=== PATIENT | male | born 1990 | race Caucasian/White ===

== ENCOUNTER 2017-10-27 15:36 | Emergency (ER) | payer MEDICAID ==
[~2017-10-27] VITALS: Ht 165.1 cm; Wt 70.9 kg
[~2017-10-27 15:36] MED LIST: RISP2TAB3 PO; RISP2TAB97 PO
[2017-10-27] MEDS ORDERED: mupirocin 2% ointment 22GM TP STA (17:17)
[2017-10-27] MEDS ORDERED: SULF1TAB49 PO (17:35)
[2017-10-27 18:08] VITALS: BP 128/92
== END 2017-10-27 17:47 | disposition home or self-care (01) ==
LOC: ER 15:36
DX: L03.811 Cellulitis of head [any part, except face] (principal); L03.113 Cellulitis of right upper limb; F19.10 Other psychoactive substance abuse, uncomplicated; F12.90 Cannabis use, unspecified, uncomplicated; Z86.14 Personal history of Methicillin resistant Staphylococcus aureus infection; Z88.5 Allergy status to narcotic agent; Z88.0 Allergy status to penicillin
CPT/HCPCS: 99283; A6449

== ENCOUNTER 2018-02-11 00:53 | Emergency (ER) | payer MEDICAID ==
[~2018-02-11] VITALS: Ht 175.3 cm; Wt 73.1 kg
[2018-02-11 01:40] VITALS: BP 154/85
[2018-02-11] MEDS ORDERED: predniSONE 20 mg tablet PO ONE (02:10)
[2018-02-11] MEDS ORDERED: diphenhydrAMINE 25mg capsule PO ONE (02:10)
[2018-02-11] MEDS ORDERED: famotidine 20mg tablet PO ONE (02:10)
[2018-02-11] MEDS ORDERED: PRED20TA PO (02:13)
[2018-02-11] MEDS ORDERED: DIPH25CA83 PO (02:13)
[2018-02-11] MEDS ORDERED: FAMO-128 PO (02:13)
[2018-02-11] MEDS ORDERED: PERM60CR19 TP (02:15)
== END 2018-02-11 02:49 | disposition home or self-care (01) ==
LOC: ER 00:54
DX: L50.9 Urticaria, unspecified (principal); F15.10 Other stimulant abuse, uncomplicated; F12.10 Cannabis abuse, uncomplicated; F11.10 Opioid abuse, uncomplicated; Z86.14 Personal history of Methicillin resistant Staphylococcus aureus infection; Z90.89 Acquired absence of other organs; Z88.0 Allergy status to penicillin; Z88.1 Allergy status to other antibiotic agents; Z88.5 Allergy status to narcotic agent
CPT/HCPCS: 99284; J7512; Q0163

== ENCOUNTER 2018-02-15 08:11 | Emergency (ER) | payer MEDICAID, OTHER ==
[~2018-02-15] VITALS: Ht 180.3 cm; Wt 73.0 kg
[~2018-02-15 08:11] MED LIST changes: +DIPH25CA83 PO; +FAMO-128 PO; +PERM60CR19 TP; +PRED20TA PO
[2018-02-15] MEDS ORDERED: normal saline 1000ML IV soln IVB ONE (08:30)
[2018-02-15] MEDS ORDERED: diphenhydrAMINE 50 mg/ml inj IV ONE (08:30)
[2018-02-15] MEDS ORDERED: methylPREDNISolone sod succ 125mg/2ml vial IV ONE (08:30)
[2018-02-15 10:07] VITALS: BP 150/69
== END 2018-02-15 10:16 | disposition home or self-care (01) ==
LOC: ER 08:11
DX: F11.10 Opioid abuse, uncomplicated (principal); T50.995A Adverse effect of other drugs, medicaments and biological substances, initial encounter; F12.90 Cannabis use, unspecified, uncomplicated; F19.10 Other psychoactive substance abuse, uncomplicated; Z88.0 Allergy status to penicillin; Z88.5 Allergy status to narcotic agent
CPT/HCPCS: 96374; 96375; 99284; J1200; J2930; J7030; 96361

== ENCOUNTER 2018-02-20 08:28 | Emergency (ER) | payer MEDICAID, OTHER ==
[~2018-02-20] VITALS: Ht 172.7 cm; Wt 80.0 kg
[2018-02-20 09:01] LABS: BASOPHILS % (AUTO) 0.2 % (0-1); EOSINOPHILS # (AUTO) 0.3 X10'3 (0-0.9); EOSINOPHILS % (AUTO) 3.1 % (0-6); HEMATOCRIT 41.8 % (42.0-52.0); HEMOGLOBIN 14.2 g/dl (14.0-17.9); LYMPHOCYTES # (AUTO) 2.4 X10'3 (1.1-4.8); LYMPHOCYTES % (AUTO) 29.7 % (21-51); MEAN CORPUSCULAR HEMOGLOBIN 28.8 PG (27.0-31.0); MEAN CORPUSCULAR HGB CONC 33.9 % (33.0-36.5); MEAN PLATELET VOLUME 8.6 FL (7.4-10.4); MONOCYTES # (AUTO) 0.6 X10'3 (0-0.9); NEUTROPHILS # (AUTO) 4.7 X10'3 (1.8-7.7); PLATELET COUNT 182 X10'3 (140-440); RED BLOOD COUNT 4.91 X10'6 (4.70-6.10); RED CELL DISTRIBUTION WIDTH 14.5 % (11.5-14.5); WHITE BLOOD COUNT 8.1 X10'3 (4.5-11.0)
[2018-02-20 09:14] LABS: ALANINE AMINOTRANSFERASE 45 U/L (12-78); ALBUMIN 3.6 G/DL (3.4-5.0); ALBUMIN/GLOBULIN RATIO 0.9 (1.1-1.5); ALKALINE PHOSPHATASE 103 IU/L (46-116); ANION GAP 5 (8-16); ASPARTATE AMINO TRANSFERASE 29 U/L (10-37); BILIRUBIN,TOTAL 0.3 MG/DL (0.1-1.0); BLOOD UREA NITROGEN 13 MG/DL (7-18); BUN/CREATININE RATIO 20.3 (5.4-32.0); CHLORIDE 103 MMOL/L (99-107); CREATININE 0.64 MG/DL (0.60-1.10); GLUCOSE 128 MG/DL (70-104); POTASSIUM 4.1 MMOL/L (3.5-5.1); SODIUM 141 MMOL/L (135-145); TOTAL CARBON DIOXIDE 32.7 MMOL/L (24-32); TOTAL PROTEIN 7.5 G/DL (6.4-8.2); eGFR > 90 ML/MIN
[2018-02-20 09:25] LABS: ACETAMINOPHEN < 2.0 UG/ML (10-30)
[2018-02-20 10:24] LABS: CLARITY,URINE SLIGHTLY CLOUDY (Clear); COLOR,URINE YELLOW (Yellow); GLUCOSE, URINE NEGATIVE (Neg); KETONES,URINE NEGATIVE (Neg); LEUKOCYTE ESTERASE ,URINE NEGATIVE (Neg); NITRITES, URINE NEGATIVE (Neg); OCCULT BLOOD,URINE NEGATIVE (Neg); PROTEIN,URINE NEGATIVE (Neg); UROBILINOGEN,URINE 0.2 E.U/dL (0.2-1.0)
[2018-02-20 10:27] LABS: UA COLLECTION TYPE CLN CATCH MIDSTREAM
[2018-02-20 10:34] LABS: URINE AMPHETAMINE SCREEN POSITIVE (Neg); URINE BARBITUATE SCREEN NEGATIVE (Neg); URINE BENZODIAZEPINES SCREEN NEGATIVE (Neg); URINE CANNABINOID SCREEN POSITIVE (Neg); URINE COCAINE SCREEN NEGATIVE (Neg); URINE METHADONE SCREEN NEGATIVE (Neg); URINE OPIATE SCREEN POSITIVE (Neg); URINE PHENCYCLIDINE SCREEN NEGATIVE (Neg)
[2018-02-20 10:38] LABS: CAL OXALATE CRYSTALS 4+ /HPF (NEGATIVE); MUCUS STRANDS MODERATE /LPF (Neg); SQUAMOUS EPITHELIAL CELL,UR NONE SEEN /LPF (FEW)
[2018-02-20 10:39] LABS: BACTERIA,URINE 1+ /HPF (Neg); RBC,URINE 0-2 /HPF (0-2); WBC CLUMPS,URINE FEW /HPF (NEGATIVE)
[2018-02-21] MEDS: LORazepam 1 MG tablet PO PRN ×2 (11:07→17:16)
[2018-02-21] MEDS ORDERED: acetaminophen 325mg tablet PO ONE (12:35)
[2018-02-21] MEDS: cloNIDine 0.1 mg tablet PO PRN (12:40)
[2018-02-21] MEDS ORDERED: nicotine 7mg patch - 24hr TD ONE (16:35)
[2018-02-21] MEDS: sulfamethoxazole/trimethoprim DS (800/160mg) tablet PO SCH (20:55)
[2018-02-21] MEDS: diphenhydrAMINE 25mg capsule PO PRN (20:55)
[2018-02-22] MEDS: LORazepam 1 MG tablet PO PRN ×2 (07:54→15:57)
[2018-02-22] MEDS: sulfamethoxazole/trimethoprim DS (800/160mg) tablet PO SCH ×2 (07:54→20:16)
[2018-02-22] MEDS: nicotine 7mg patch - 24hr TD SCH (10:40)
[2018-02-22] MEDS ORDERED: loperamide 2mg capsule PO ONE (13:25)
[2018-02-22] MEDS ORDERED: loperamide 2mg capsule PO PRN (13:25)
[2018-02-22] MEDS: cloNIDine 0.1 mg tablet PO PRN ×2 (13:35→20:17)
[2018-02-22] MEDS: lactobacillus rhamnosus 10,000 MMU CELLS/CAPSULE PO SCH (20:16)
[2018-02-22] MEDS: diphenhydrAMINE 25mg capsule PO PRN (20:17)
[2018-02-23] MEDS: sulfamethoxazole/trimethoprim DS (800/160mg) tablet PO SCH ×2 (08:40→20:17)
[2018-02-23] MEDS: diphenhydrAMINE 25mg capsule PO PRN ×2 (08:40→20:17)
[2018-02-23] MEDS: LORazepam 1 MG tablet PO PRN ×2 (08:40→20:17)
[2018-02-23] MEDS: lactobacillus rhamnosus 10,000 MMU CELLS/CAPSULE PO SCH ×2 (08:40→20:17)
[2018-02-23] MEDS: nicotine 7mg patch - 24hr TD SCH (08:41)
[2018-02-24] MEDS: lactobacillus rhamnosus 10,000 MMU CELLS/CAPSULE PO SCH (07:59)
[2018-02-24] MEDS: sulfamethoxazole/trimethoprim DS (800/160mg) tablet PO SCH (07:59)
[2018-02-24] MEDS: nicotine 7mg patch - 24hr TD SCH (08:00)
[2018-02-24 10:40] VITALS: BP 124/52
== END 2018-02-24 10:46 | disposition home or self-care (01) ==
LOC: ER 08:29
DX: R45.851 Suicidal ideations (principal); F32.9 Major depressive disorder, single episode, unspecified; F41.9 Anxiety disorder, unspecified; F12.90 Cannabis use, unspecified, uncomplicated; F11.10 Opioid abuse, uncomplicated; Z88.0 Allergy status to penicillin; Z88.5 Allergy status to narcotic agent; Z79.899 Other long term (current) drug therapy
CPT/HCPCS: 36415; 80053; 80305; 80320; 80329; 81001; 84443; 85025; 87088; 99284; Q0163

== ENCOUNTER 2018-03-07 07:42 | Emergency (ER) | payer MEDICAID, OTHER ==
[~2018-03-07] VITALS: Ht 175.3 cm; Wt 74.0 kg
[2018-03-07 07:58] VITALS: BP 126/78
[2018-03-07] MEDS ORDERED: SULF1TAB49 PO (08:25)
== END 2018-03-07 08:58 | disposition home or self-care (01) ==
LOC: ER 07:43
DX: L08.0 Pyoderma (principal); F12.10 Cannabis abuse, uncomplicated; F15.10 Other stimulant abuse, uncomplicated; F11.10 Opioid abuse, uncomplicated; Z86.14 Personal history of Methicillin resistant Staphylococcus aureus infection; Z88.0 Allergy status to penicillin; Z88.5 Allergy status to narcotic agent; Z88.8 Allergy status to other drugs, medicaments and biological substances; Z79.899 Other long term (current) drug therapy
CPT/HCPCS: 99283

== ENCOUNTER 2018-08-24 09:59 | Emergency (ER) | payer MEDICAID ==
[~2018-08-24] VITALS: Ht 175.3 cm; Wt 70.0 kg
[2018-08-24 10:12] VITALS: BP 118/65
[2018-08-24] MEDS ORDERED: IBUP-1984 PO (11:08)
[2018-08-24] MEDS ORDERED: ketorolac tromethamine 15mg/ml inj. IM ONE (11:10)
== END 2018-08-24 11:46 | disposition home or self-care (01) ==
LOC: ER 09:59
DX: M25.562 Pain in left knee (principal); F15.90 Other stimulant use, unspecified, uncomplicated; F11.90 Opioid use, unspecified, uncomplicated; F12.90 Cannabis use, unspecified, uncomplicated; Z88.6 Allergy status to analgesic agent; Z88.1 Allergy status to other antibiotic agents; Z88.0 Allergy status to penicillin; W17.81XA Fall down embankment (hill), initial encounter; Y93.89 Activity, other specified; Y92.828 Other wilderness area as the place of occurrence of the external cause; Y99.8 Other external cause status
CPT/HCPCS: 29505; 96372; 99284; J1885

== ENCOUNTER 2018-09-27 19:06 | Emergency (ER) | payer MEDICAID | END 2018-09-27 20:03 | disposition left against medical advice (07) | LOC: ER 19:06 | DX: L02.818 Cutaneous abscess of other sites (principal); Z53.21 Procedure and treatment not carried out due to patient leaving prior to being seen by health care provider ==

== ENCOUNTER 2019-02-10 17:55 | Emergency (ER) | payer MEDICAID ==
[~2019-02-10] VITALS: Ht 172.7 cm; Wt 75.0 kg
[2019-02-10 18:01] VITALS: BP 127/82
[2019-02-10] MEDS ORDERED: LORazepam 0.5 MG tablet PO PRN (18:25)
[2019-02-10] MEDS ORDERED: ibuprofen tablet 400 MG TABLET PO ONE (18:25)
[2019-02-10] MEDS ORDERED: NALO4SPR NAS (19:00)
== END 2019-02-10 19:19 | disposition home or self-care (01) ==
LOC: ER 17:56
DX: F41.9 Anxiety disorder, unspecified (principal); F31.9 Bipolar disorder, unspecified; F11.90 Opioid use, unspecified, uncomplicated; F12.90 Cannabis use, unspecified, uncomplicated; F15.90 Other stimulant use, unspecified, uncomplicated; Z86.14 Personal history of Methicillin resistant Staphylococcus aureus infection; Z98.890 Other specified postprocedural states; Z88.0 Allergy status to penicillin; Z88.1 Allergy status to other antibiotic agents; Z88.5 Allergy status to narcotic agent; Z79.899 Other long term (current) drug therapy; Z86.19 Personal history of other infectious and parasitic diseases
CPT/HCPCS: 99284

== ENCOUNTER 2020-04-02 02:02 | Emergency (ER) | payer MEDICAID ==
[~2020-04-02] VITALS: Ht 175.3 cm; Wt 7.7 kg
[~2020-04-02 02:02] MED LIST changes: -DIPH25CA83 PO; -FAMO-128 PO; +NALO4SPR NAS; -PERM60CR19 TP; -PRED20TA PO; -RISP2TAB3 PO; -RISP2TAB97 PO
[2020-04-02] MEDS ORDERED: LIDOcaine 1% 30ml preserv. free vial IJ ONE (02:15)
[2020-04-02] MEDS ORDERED: CEPH-572 PO (02:52)
[2020-04-02 03:33] VITALS: BP 122/70
== END 2020-04-02 03:34 | disposition home or self-care (01) ==
LOC: ER 02:03
DX: S61.201A Unspecified open wound of left index finger without damage to nail, initial encounter (principal); F41.9 Anxiety disorder, unspecified; F31.9 Bipolar disorder, unspecified; F12.90 Cannabis use, unspecified, uncomplicated; F15.90 Other stimulant use, unspecified, uncomplicated; F11.90 Opioid use, unspecified, uncomplicated; Z90.89 Acquired absence of other organs; Z86.69 Personal history of other diseases of the nervous system and sense organs; Z86.14 Personal history of Methicillin resistant Staphylococcus aureus infection; Z88.0 Allergy status to penicillin; Z88.5 Allergy status to narcotic agent; Z79.899 Other long term (current) drug therapy; W25.XXXA Contact with sharp glass, initial encounter; Y93.89 Activity, other specified; Y92.89 Other specified places as the place of occurrence of the external cause; Y99.8 Other external cause status
CPT/HCPCS: 12001; 73140; 99283

== ENCOUNTER 2020-08-22 07:59 | Inpatient (IN) | payer MEDICAID, OTHER ==
[2020-08-22] VITALS (8 sets, daily range): BP systolic 127–146; BP diastolic 79–93
[~2020-08-22] VITALS: Ht 177.8 cm; Wt 87.3 kg
[2020-08-22] MEDS: K and/or MAG REPLACEMENT MC SCH (08:00)
[2020-08-22] MEDS ORDERED: acetaminophen 325mg tablet PO STA (08:03)
[2020-08-22] MEDS ORDERED: normal saline 1000ML IV soln IV ONE (08:05)
[2020-08-22] MEDS ORDERED: CefTRIAXone 2gm/D5W 50ml BAG 50 ML IV ONE (08:05)
[2020-08-22] MEDS ORDERED: pantoprazole 40MG/NS 100ML BAG 100 ML IV ONE ×2 (08:05→13:00)
[2020-08-22] MEDS ORDERED: pantoprazole IV 80 MG in normal saline 100ml IV soln 100 ML IV ONE (08:05)
[2020-08-22 09:02] LABS: BASOPHILS # (AUTO) 0.1 X10'3 (0-0.2); BASOPHILS % (AUTO) 0.5 % (0-1); EOSINOPHILS % (AUTO) 0 % (0-6); HEMATOCRIT 41.7 % (42.0-52.0); HEMOGLOBIN 14.2 g/dl (14.0-17.9); LYMPHOCYTES # (AUTO) 1.9 X10'3 (1.1-4.8); LYMPHOCYTES % (AUTO) 9.7 % (21-51); MEAN CORPUSCULAR HEMOGLOBIN 25.7 PG (27.0-31.0); MEAN CORPUSCULAR HGB CONC 34.1 g/dL (33.0-36.5); MEAN CORPUSCULAR VOLUME 75.4 FL (78-98); MEAN PLATELET VOLUME 8.8 FL (7.4-10.4); MONOCYTES # (AUTO) 2.4 X10'3 (0-0.9); MONOCYTES % (AUTO) 12.3 % (2-12); NEUTROPHILS # (AUTO) 15.3 X10'3 (1.8-7.7); NEUTROPHILS % (AUTO) 77.5 % (42-75); PLATELET COUNT 215 X10'3 (140-440); RED BLOOD COUNT 5.53 X10'6 (4.70-6.10); RED CELL DISTRIBUTION WIDTH 12.8 % (11.5-14.5); WHITE BLOOD COUNT 19.8 X10'3 (4.5-11.0)
[2020-08-22] MEDS ORDERED: ondansetron/PF 4mg/2ml inj IV ONE (09:05)
[2020-08-22] MEDS ORDERED: phenobarbital sod 130mg/ml inj. IV ONE (09:05)
[2020-08-22 09:13] LABS: PARTIAL THROMBOPLASTIN TIME 34 SECONDS (22-32)
[2020-08-22 09:16] LABS: ALANINE AMINOTRANSFERASE 27 U/L (12-78); ALBUMIN 3.3 G/DL (3.4-5.0); ALBUMIN/GLOBULIN RATIO 0.6 (1.1-1.5); ALKALINE PHOSPHATASE 121 IU/L (46-116); ANION GAP 10 (8-16); ASPARTATE AMINO TRANSFERASE 20 U/L (10-37); BILIRUBIN,TOTAL 0.7 MG/DL (0.1-1.0); BLOOD UREA NITROGEN 24 MG/DL (7-18); BUN/CREATININE RATIO 24.5 (5.4-32.0); CALCIUM 8.9 MG/DL (8.5-10.1); CHLORIDE 88 MMOL/L (99-107); CREATININE 0.98 MG/DL (0.60-1.10); GLUCOSE 135 MG/DL (70-104); MAGNESIUM 2.4 MG/DL (1.5-2.4); POTASSIUM 3.2 MMOL/L (3.5-5.1); SODIUM 124 MMOL/L (135-145); TOTAL CARBON DIOXIDE 25.9 MMOL/L (24-32); TOTAL PROTEIN 8.7 G/DL (6.4-8.2); eGFR 89 ML/MIN
[2020-08-22 09:39] LABS: ETHANOL < 0.010 GM/DL (0.0-0.010)
[2020-08-22 09:51] LABS: TOTAL CELLS COUNTED 100
[2020-08-22 09:53] LABS: PLATELET ESTIMATE NORMAL; POLYCHROMASIA FEW
[2020-08-22 10:13] LABS: CLARITY,URINE SLIGHTLY CLOUDY (Clear); COLOR,URINE YELLOW (Yellow); GLUCOSE, URINE NEGATIVE (Neg); KETONES,URINE 15 mg/dl (Neg); LEUKOCYTE ESTERASE ,URINE NEGATIVE (Neg); NITRITES, URINE NEGATIVE (Neg); OCCULT BLOOD,URINE LARGE (Neg); PH,URINE 5.5 (4.8-8.0); PROTEIN,URINE 100 mg/dl (Neg); UROBILINOGEN,URINE 0.2 E.U/dL (0.2-1.0)
[2020-08-22 10:14] LABS: UA COLLECTION TYPE FOLEY CATH
[2020-08-22 10:18] LABS: URINE AMPHETAMINE SCREEN NEGATIVE (Neg); URINE BARBITUATE SCREEN POSITIVE (Neg); URINE BENZODIAZEPINES SCREEN NEGATIVE (Neg); URINE CANNABINOID SCREEN NEGATIVE (Neg); URINE COCAINE SCREEN NEGATIVE (Neg); URINE METHADONE SCREEN NEGATIVE (Neg); URINE OPIATE SCREEN NEGATIVE (Neg); URINE PHENCYCLIDINE SCREEN NEGATIVE (Neg)
[2020-08-22 10:22] LABS: COARSE GRANULAR CAST 0-3 /LPF (NEGATIVE); FINE GRANULAR CAST 0-3 /LPF (NEGATIVE); SQUAMOUS EPITHELIAL CELL,UR FEW /LPF (FEW)
[2020-08-22 10:25] LABS: BACTERIA,URINE FEW /HPF (Neg); WBC,URINE 0-4 /HPF (0-4)
[2020-08-22 10:26] LABS: TRANSITIONAL EPI CELLS,URINE FEW /HPF
--- NOTE | 2020-08-22 10:32 | NUR ---
Pt to CT
[2020-08-22] MEDS ORDERED: iohexol 300mg/ml 100ml inj. ONE (10:33)
[2020-08-22 11:01] LABS: OCCULT BLOOD STOOL POSITIVE (Neg)
[2020-08-22 11:07] LABS: LIPASE 294 U/L (73-393)
--- NOTE | 2020-08-22 12:00 | NUR ---
Pt altered, intermittently calling out to Juan Jose as well as a Lillian. CO at bedside as well as myself frequently reorienting pt. Pt also intermittently only responsive to painful stimuli, to hold PO at this time.
[2020-08-22] MEDS ORDERED: bisacodyl 10mg suppository rectal RC PRN (12:05)
[2020-08-22] MEDS ORDERED: diphenhydrAMINE 25mg capsule PO PRN (12:05)
[2020-08-22] MEDS ORDERED: acetaminophen 325mg tablet PO PRN (12:05)
[2020-08-22] MEDS ORDERED: ondansetron/PF 4mg/2ml inj IV PRN (12:05)
[2020-08-22] MEDS ORDERED: potassium CL 10mEq/100ml bag 100 ML IV PRN ×2 (12:05)
[2020-08-22] MEDS ORDERED: mag hydrox/Alum hydrox/simeth 30ml oral suspension PO PRN (12:05)
[2020-08-22] MEDS: pantoprazole 40MG/NS 100ML BAG 100 ML IV SCH ×3 (12:05→22:33)
[2020-08-22] MEDS ORDERED: magnesium 2GM in 50ml NS 50 ML IV PRN (12:05)
[2020-08-22] MEDS ORDERED: magnesium 4gm in 100ml NS 100 ML IV PRN (12:05)
[2020-08-22] MEDS ORDERED: acetaminophen 650mg rectal suppository RC PRN (12:05)
[2020-08-22] MEDS ORDERED: magnesium Cl slow-release 64mg tablet PO PRN (12:05)
[2020-08-22] MEDS ORDERED: magnesium hydroxide 30ml (MOM) UD suspension PO PRN (12:05)
[2020-08-22] MEDS ORDERED: metoclopramide 5 mg/ml inj IV PRN (12:05)
[2020-08-22] MEDS ORDERED: thiamine inj. 100 MG in normal saline 100ml IV soln 100 ML IV ONE (12:10)
[2020-08-22] MEDS ORDERED: haloperidol lactate 5mg/ml inj IM PRN ×2 (12:10→19:00)
[2020-08-22] MEDS ORDERED: LORazepam 1 MG tablet PO PRN (12:10)
[2020-08-22] MEDS ORDERED: LORazepam 2 mg/ml vial IV PRN (12:10)
[2020-08-22] MEDS ORDERED: haloperidol 5mg tablet PO PRN ×2 (12:10→19:00)
[2020-08-22 12:38] LABS: HEMOGLOBIN A1C 5.5 % (4.5-6.2)
[2020-08-22] MEDS ORDERED: diatr meglu/diatrizoate 30ml oral sol.-(3 dose) bottle PO SCH (13:00)
[2020-08-22 14:22] LABS: HEMATOCRIT 35.8 % (42.0-52.0); HEMOGLOBIN 12.1 g/dl (14.0-17.9); MEAN CORPUSCULAR HEMOGLOBIN 26.1 PG (27.0-31.0); MEAN CORPUSCULAR HGB CONC 33.9 g/dL (33.0-36.5); MEAN PLATELET VOLUME 8.9 FL (7.4-10.4); PLATELET COUNT 153 X10'3 (140-440); RED BLOOD COUNT 4.65 X10'6 (4.70-6.10); RED CELL DISTRIBUTION WIDTH 12.8 % (11.5-14.5); WHITE BLOOD COUNT 11.6 X10'3 (4.5-11.0)
[2020-08-22] MEDS: normal saline 1000ml 1,000 ML IV SCH ×2 (14:39→23:56)
--- NOTE | 2020-08-22 15:20 | NUR ---
Pt becoming increasingly agitated. Remains intermittently confused. Requesting something to help him "calm down". IV ativan to be given per protocol as pt remains to altered for PO Ativan.
[2020-08-22] MEDS: metroNIDAZOLE-Flagyl 500mg/NS 100 ML IV SCH ×2 (15:26→17:22)
--- NOTE | 2020-08-22 15:57 | NUR ---
Patient in room ED 3. I have received report from Alondra MEDRANO and had the opportunity to ask questions and assume patient care. Primary nurse stated she would attempt to place the NG tube. RN also stated she was unsure if the patient had been seen by a hospitalist and was unsure regarding the [facility] order. Awaiting the patient at this time.
--- NOTE | 2020-08-22 16:14 | NUR ---
Pt released from [facility] custody. Per officer, pt needs to return to the halfway for his belongings upon discharge from the hospital.
--- NOTE | 2020-08-22 17:07 | NUR ---
PAGER ID: [phone] MESSAGE: Micah Salinas - Pt. arrived to floor, pulling at NG tube and lines. Can we have order for sitter and restraints? Majo MEDRANO [id number]
--- NOTE | 2020-08-22 17:11 | NUR ---
Patient arrived to floor, pulling at NG tube and IV lines. paged, received orders for restraints and a sitter. Vital signs obtained, tele placed. 2 RN skin check completed. MRSA swab sent. Per Dr. Hassan, do overnight prep with gastroview for CT in the AM.
[2020-08-22] MEDS: levoFLOXACIN-Levaquin 750MG/D5 150 ML IV SCH (17:27)
--- NOTE | 2020-08-22 18:24 | NUR ---
Problems reprioritized. Patient report given, questions answered & plan of care reviewed with Trino MEDRANO.
[2020-08-22] MEDS ORDERED: octreotide 100mcg/1 ml ampule SQ ONE (18:40)
[2020-08-22 18:48] LABS: HEMATOCRIT 36.2 % (42.0-52.0); HEMOGLOBIN 12.1 g/dl (14.0-17.9); MEAN CORPUSCULAR HEMOGLOBIN 25.9 PG (27.0-31.0); MEAN CORPUSCULAR HGB CONC 33.3 g/dL (33.0-36.5); MEAN CORPUSCULAR VOLUME 77.7 FL (78-98); MEAN PLATELET VOLUME 8.9 FL (7.4-10.4); PLATELET COUNT 111 X10'3 (140-440); RED BLOOD COUNT 4.66 X10'6 (4.70-6.10); RED CELL DISTRIBUTION WIDTH 12.9 % (11.5-14.5); WHITE BLOOD COUNT 13.7 X10'3 (4.5-11.0)
[2020-08-22] MEDS ORDERED: metoclopramide 5 mg/ml inj IV ONE (19:30)
[2020-08-22] MEDS ORDERED: LIDOcaine Viscous 15ml cup ONE (20:02)
[2020-08-22] MEDS ORDERED: fentaNYL/PF 50MCG/1 ML 2ML syringe ONE (20:02)
[2020-08-22] MEDS ORDERED: MIDAZolam 5mg/5ml vial ONE (20:02)
[2020-08-22] MEDS: OCTREOTIDE 1,250 MCG in NS 250ml IV.SOLN IV SCH (22:17)
[2020-08-22] MEDS: LORazepam 2 mg/ml vial IV PRN (23:44)
[2020-08-23] MEDS: metroNIDAZOLE-Flagyl 500mg/NS 100 ML IV SCH ×4 (01:45→23:51)
[2020-08-23 02:00] VITALS: BP 139/87
[2020-08-23 02:13] LABS: BASOPHILS % (AUTO) 0.4 % (0-1); EOSINOPHILS % (AUTO) 0 % (0-6); HEMATOCRIT 33.9 % (42.0-52.0); HEMOGLOBIN 11.7 g/dl (14.0-17.9); LYMPHOCYTES # (AUTO) 1.4 X10'3 (1.1-4.8); LYMPHOCYTES % (AUTO) 12.6 % (21-51); MEAN CORPUSCULAR HEMOGLOBIN 26.1 PG (27.0-31.0); MEAN CORPUSCULAR HGB CONC 34.5 g/dL (33.0-36.5); MEAN CORPUSCULAR VOLUME 75.6 FL (78-98); MONOCYTES # (AUTO) 1.1 X10'3 (0-0.9); MONOCYTES % (AUTO) 9.7 % (2-12); NEUTROPHILS # (AUTO) 8.9 X10'3 (1.8-7.7); NEUTROPHILS % (AUTO) 77.3 % (42-75); PLATELET COUNT 172 X10'3 (140-440); RED BLOOD COUNT 4.49 X10'6 (4.70-6.10); RED CELL DISTRIBUTION WIDTH 12.6 % (11.5-14.5); WHITE BLOOD COUNT 11.5 X10'3 (4.5-11.0)
[2020-08-23 02:34] LABS: ALANINE AMINOTRANSFERASE 22 U/L (12-78); ALBUMIN 2.7 G/DL (3.4-5.0); ALBUMIN/GLOBULIN RATIO 0.6 (1.1-1.5); ALKALINE PHOSPHATASE 89 IU/L (46-116); AMYLASE 94 U/L (25-115); ANION GAP 8 (8-16); ASPARTATE AMINO TRANSFERASE 20 U/L (10-37); BILIRUBIN,TOTAL 0.5 MG/DL (0.1-1.0); BLOOD UREA NITROGEN 14 MG/DL (7-18); BUN/CREATININE RATIO 14.4 (5.4-32.0); CALCIUM 7.8 MG/DL (8.5-10.1); CHLORIDE 99 MMOL/L (99-107); CHOL/HDL RATIO 7.5 (0.00-4.99); CHOLESTEROL 120 MG/DL (0-200); CREATININE 0.97 MG/DL (0.60-1.10); GLUCOSE 147 MG/DL (70-104); HDL CHOLESTEROL 16 MG/DL (35-60); LDL CHOLESTEROL 78 MG/DL (50-100); LIPASE 376 U/L (73-393); PHOSPHORUS 2.1 MG/DL (2.3-4.5); POTASSIUM 3.4 MMOL/L (3.5-5.1); SODIUM 132 MMOL/L (135-145); TOTAL CARBON DIOXIDE 25.3 MMOL/L (24-32); TOTAL PROTEIN 6.9 G/DL (6.4-8.2); TRIGLYCERIDES 128 MG/DL (20-135); eGFR 90 ML/MIN
[2020-08-23] MEDS: pantoprazole 40MG/NS 100ML BAG 100 ML IV SCH ×6 (03:47→23:51)
[2020-08-23] MEDS: diatr meglu/diatrizoate 30ml oral sol.-(3 dose) bottle PO SCH ×3 (05:15→11:23)
[2020-08-23 06:00] VITALS: BP 139/74
--- NOTE | 2020-08-23 06:39 | NUR ---
Problems reprioritized. Patient report given, questions answered & plan of care reviewed with DONALD. Addendum: 08/23/20 at 0640 by Alejo Hay RN Amended: Links added.
--- NOTE | 2020-08-23 06:43 | NUR ---
Patient in room PCU 3012. I have received report from Trino Akins and had the opportunity to ask questions and assume patient care.
[2020-08-23] MEDS: K and/or MAG REPLACEMENT MC SCH ×2 (08:00→19:31)
[2020-08-23] MEDS: normal saline 1000ml 1,000 ML IV SCH ×2 (08:05→18:05)
[2020-08-23] MEDS: LORazepam 2 mg/ml vial IV PRN ×2 (08:15→23:47)
--- NOTE | 2020-08-23 08:15 | NUR ---
PAGER ID: [phone] MESSAGE: Micah Salinas#[phone]- Pt pulled his PIV on his hand. Pt has Protonix, sandistatin, other antibiotics that need to be given. Can we please get pic put in a central line so we can draw? Thank you. Veronica
[2020-08-23] MEDS: thiamine inj. 100 MG, MVI, adult No.4 with vit. K 10 ML in dextrose 5% water 500ml 500 ML IV SCH ×3 (09:45)
[2020-08-23] MEDS: folic acid 1mg/0.2ml inj IV SCH (09:45)
[2020-08-23] MEDS: levoFLOXACIN-Levaquin 750MG/D5 150 ML IV SCH (11:25)
[2020-08-23] MEDS: vancomycin/NS 1 GM ADD-VANTAGE 250 ML IV SCH ×2 (13:18→19:35)
[2020-08-23 14:11] VITALS: BP 129/87
[2020-08-23 15:00] VITALS: BP 156/85
--- NOTE | 2020-08-23 17:50 | NUR ---
PAGER ID: [phone] MESSAGE: Micah Rita [phone]- Pt got a bag with belongings and restrains were a bit loose/sitter there as well, Pt shot up what looks like heroin up his hand IV. Charge is giving him Narcan 1mg MARCELA. Veronica
[2020-08-23] MEDS ORDERED: naloxone 2mg/2ml inj IV STA ×2 (17:51)
[2020-08-23 18:00] VITALS: BP 154/79
--- NOTE | 2020-08-23 18:15 | NUR ---
bought up patients belongings in a back pack requesting to give to patient. I told them his back pack and belongings inside would have to be searched. went into conference room and searched his bag and belongings. They brought me a plastic container with 3 cigerettes and a motorcycle police stating thats all they found. then gave bag to patient in 3012B. The sitter states that he was assisting one of the other 2 patients with sitter orders with his meal when he noticed what he said looked like a syringe in 3012B's hand. Carlosondina stated that patient injected something into his IV. I was notified to find what appeared to be heroin in a baggy and a insulin syringe at patient bedside. The patient was slouched over and not responsive in bed. I broke into the crash cart for narcan and administered 1mL. The patient became aware and stated he wanted to leave AMA. I told him he almost the day before from his admit condition and that if he left AMA he possible could deterioate and , so leaving was not a good option for him until the Md medically cleares him for DC. Restraints were on the patient but loose as he had been appropriate all day and staff was attempting to get him out of restraints.
--- NOTE | 2020-08-23 18:43 | NUR ---
Problems reprioritized. Patient report given, questions answered & plan of care reviewed with jerri MEDRANO.
--- NOTE | 2020-08-23 18:50 | NUR ---
Patient in room PCU 3012. I have received report from Dayana MEDRANO and had the opportunity to ask questions and assume patient care.
[2020-08-23] MEDS: lactobacillus rhamnosus 10,000 MMU CELLS/CAPSULE PO SCH (19:35)
[2020-08-23] MEDS: potassium Cl 20 mEq SR tablet PO PRN (19:36)
[2020-08-23 22:00] VITALS: BP 142/81
[2020-08-24] VITALS (7 sets, daily range): BP systolic 130–153; BP diastolic 59–98
[2020-08-24] MEDS: vancomycin/NS 1 GM ADD-VANTAGE 250 ML IV SCH ×2 (02:59→13:30)
[2020-08-24] MEDS: normal saline 1000ml 1,000 ML IV SCH ×2 (02:59→14:05)
[2020-08-24] MEDS: pantoprazole 40MG/NS 100ML BAG 100 ML IV SCH ×4 (05:39→22:35)
--- NOTE | 2020-08-24 06:55 | NUR ---
Problems reprioritized. Patient report given, questions answered & plan of care reviewed with Gill MEDRANO.
--- NOTE | 2020-08-24 06:55 | NUR ---
Patient in room PCU 3012. I have received report from Chioma MEDRANO and had the opportunity to ask questions and assume patient care.
[2020-08-24] MEDS: K and/or MAG REPLACEMENT MC SCH (08:00)
[2020-08-24] MEDS: lactobacillus rhamnosus 10,000 MMU CELLS/CAPSULE PO SCH ×2 (08:00→20:59)
[2020-08-24] MEDS: metroNIDAZOLE-Flagyl 500mg/NS 100 ML IV SCH ×2 (08:41→17:07)
[2020-08-24] MEDS: thiamine inj. 100 MG, MVI, adult No.4 with vit. K 10 ML in dextrose 5% water 500ml 500 ML IV SCH ×3 (08:43)
[2020-08-24] MEDS: folic acid 1mg/0.2ml inj IV SCH (08:43)
--- NOTE | 2020-08-24 08:45 | NUR ---
Per cris Black, patient has been off restraints early this am when he took over the care. Patient sleeping at this time. Patient asked for Ativan not too long ago, I pulled out the Ativan IV from [facility] machine but when I got to his room patient very sleepy, will open eyes then back to sleep.
[2020-08-24 09:20] LABS: BASOPHILS % (AUTO) 0.3 % (0-1); EOSINOPHILS % (AUTO) 0 % (0-6); HEMATOCRIT 30.5 % (42.0-52.0); HEMOGLOBIN 10.5 g/dl (14.0-17.9); LYMPHOCYTES # (AUTO) 1.2 X10'3 (1.1-4.8); LYMPHOCYTES % (AUTO) 13.3 % (21-51); MEAN CORPUSCULAR HEMOGLOBIN 26.1 PG (27.0-31.0); MEAN CORPUSCULAR HGB CONC 34.3 g/dL (33.0-36.5); MEAN CORPUSCULAR VOLUME 76.2 FL (78-98); MEAN PLATELET VOLUME 9.5 FL (7.4-10.4); MONOCYTES # (AUTO) 0.6 X10'3 (0-0.9); MONOCYTES % (AUTO) 5.9 % (2-12); NEUTROPHILS # (AUTO) 7.5 X10'3 (1.8-7.7); NEUTROPHILS % (AUTO) 80.5 % (42-75); PLATELET COUNT 139 X10'3 (140-440); RED BLOOD COUNT 4.01 X10'6 (4.70-6.10); RED CELL DISTRIBUTION WIDTH 12.6 % (11.5-14.5); WHITE BLOOD COUNT 9.4 X10'3 (4.5-11.0)
[2020-08-24 09:34] LABS: ALANINE AMINOTRANSFERASE 18 U/L (12-78); ALBUMIN 2.6 G/DL (3.4-5.0); ALBUMIN/GLOBULIN RATIO 0.7 (1.1-1.5); ALKALINE PHOSPHATASE 75 IU/L (46-116); AMYLASE 85 U/L (25-115); ANION GAP 11 (8-16); ASPARTATE AMINO TRANSFERASE 16 U/L (10-37); BILIRUBIN,TOTAL 0.5 MG/DL (0.1-1.0); BLOOD UREA NITROGEN 6 MG/DL (7-18); BUN/CREATININE RATIO 7.4 (5.4-32.0); CALCIUM 7.6 MG/DL (8.5-10.1); CHLORIDE 94 MMOL/L (99-107); CREATININE 0.81 MG/DL (0.60-1.10); GLUCOSE 166 MG/DL (70-104); LIPASE 349 U/L (73-393); MAGNESIUM 1.7 MG/DL (1.5-2.4); PHOSPHORUS 1.8 MG/DL (2.3-4.5); SODIUM 126 MMOL/L (135-145); TOTAL CARBON DIOXIDE 21.5 MMOL/L (24-32); TOTAL PROTEIN 6.6 G/DL (6.4-8.2); eGFR > 90 ML/MIN
--- NOTE | 2020-08-24 09:47 | NUR ---
Paged Dr. Hassan PAGER ID: [phone] MESSAGE: DEUCE Haji RN ext [phone]. RE: Micah Salinas. Reporting critical lab K 3.0, will replace this per protocol
[2020-08-24] MEDS: levoFLOXACIN-Levaquin 750MG/D5 150 ML IV SCH (09:53)
[2020-08-24] MEDS: potassium Cl 20 mEq SR tablet PO PRN ×2 (09:54→17:48)
[2020-08-24] MEDS: LORazepam 2 mg/ml vial IV PRN (10:23)
[2020-08-24] MEDS ORDERED: VANCOMYCIN LEVEL IV ONE (10:30)
--- NOTE | 2020-08-24 13:09 | NUR ---
Right upper arm extended line not drawing blood at this time, unable to collect blood sample for the second set of blood culture. Margarito notified about this
--- NOTE | 2020-08-24 13:10 | NUR ---
I told patient that his mom Octavia called at earlier time when he was sleeping, I asked him if he is okay with me giving her information about condition if she calls again, he said yes. Patient's mom Octavia added to the swimming pool salesperson in [employer]
--- NOTE | 2020-08-24 14:00 | NUR ---
I called lab again, spoke to Tracie, manager supply chain planning about inability to draw blood from the extended line. She said she tried and could not get it. I asked her if she can get Ashley Syed or anybody to try it again.
--- NOTE | 2020-08-24 15:10 | NUR ---
It has been 4 hours ago since the first dose of KCL 40 mEq PO, when I told patient I am going to give the second dose of PO KCL, patient refused it. I told him that he need it because his K is too low 3.0. He requested to have it given around dinner time instead. Patient went back to sleep. Right upper arm extended line rechecked, blood return noted again at this time.
--- NOTE | 2020-08-24 18:55 | NUR ---
Patient in room PCU 3012. I have received report from Gill MEDRANO and had the opportunity to ask questions and assume patient care.
[2020-08-24] MEDS ORDERED: LORazepam 2 mg/ml vial IV PRN (19:00)
--- NOTE | 2020-08-24 19:05 | NUR ---
Problems reprioritized. Patient report given, questions answered & plan of care reviewed with Anamaria MEDRANO.
--- NOTE | 2020-08-24 19:30 | NUR ---
Patients mother called to check on pt.
[2020-08-24] MEDS: LORazepam 1 MG tablet PO PRN (20:59)
[2020-08-24] MEDS: OCTREOTIDE 1,250 MCG in NS 250ml IV.SOLN IV SCH (21:00)
[2020-08-24] MEDS: diatr meglu/diatrizoate 30ml oral sol.-(3 dose) bottle PO SCH (21:00)
[2020-08-25] MEDS: potassium Cl 20 mEq SR tablet PO PRN ×2 (01:56→01:57)
[2020-08-25] MEDS: K and/or MAG REPLACEMENT MC SCH ×2 (01:57→08:00)
[2020-08-25] MEDS: potassium Cl 20mEq in D5-NS 1,000 ML IV SCH ×2 (01:58→11:45)
[2020-08-25 02:00] VITALS: BP 145/91
[2020-08-25] MEDS: pantoprazole 40MG/NS 100ML BAG 100 ML IV SCH ×3 (02:02→11:00)
[2020-08-25] MEDS ORDERED: acetaminophen 325mg tablet PO PRN (02:15)
[2020-08-25] MEDS: LORazepam 1 MG tablet PO PRN ×2 (02:19→10:06)
--- NOTE | 2020-08-25 05:31 | NUR ---
Pt. was requesting pain medication during shift. gave order for tylenol q4hr.
[2020-08-25 06:00] VITALS: BP 131/84
--- NOTE | 2020-08-25 06:00 | NUR ---
Called pharmacist earlier in the shift as patient initially had 3 iv sites. 2 sites came out and were replaced. Then one of those came out. Pharmacist stated "ok to y-port protonix with sandostatin.
--- NOTE | 2020-08-25 06:45 | NUR ---
Problems reprioritized. Patient report given, questions answered & plan of care reviewed with Sirisha MEDRANO.
[2020-08-25] MEDS: lactobacillus rhamnosus 10,000 MMU CELLS/CAPSULE PO SCH (08:00)
[2020-08-25 09:14] LABS: BASOPHILS # (AUTO) 0.1 X10'3 (0-0.2); BASOPHILS % (AUTO) 0.7 % (0-1); EOSINOPHILS % (AUTO) 0.4 % (0-6); HEMATOCRIT 32.9 % (42.0-52.0); HEMOGLOBIN 11.4 g/dl (14.0-17.9); LYMPHOCYTES % (AUTO) 10.2 % (21-51); MEAN CORPUSCULAR HEMOGLOBIN 26.5 PG (27.0-31.0); MEAN CORPUSCULAR HGB CONC 34.7 g/dL (33.0-36.5); MEAN CORPUSCULAR VOLUME 76.4 FL (78-98); MEAN PLATELET VOLUME 9.3 FL (7.4-10.4); MONOCYTES # (AUTO) 0.6 X10'3 (0-0.9); MONOCYTES % (AUTO) 6.2 % (2-12); NEUTROPHILS # (AUTO) 7.9 X10'3 (1.8-7.7); NEUTROPHILS % (AUTO) 82.5 % (42-75); PLATELET COUNT 156 X10'3 (140-440); RED BLOOD COUNT 4.31 X10'6 (4.70-6.10); RED CELL DISTRIBUTION WIDTH 12.8 % (11.5-14.5); WHITE BLOOD COUNT 9.6 X10'3 (4.5-11.0)
[2020-08-25 09:47] LABS: ALANINE AMINOTRANSFERASE 17 U/L (12-78); ALBUMIN 2.8 G/DL (3.4-5.0); ALBUMIN/GLOBULIN RATIO 0.7 (1.1-1.5); ALKALINE PHOSPHATASE 76 IU/L (46-116); AMYLASE 89 U/L (25-115); ANION GAP 10 (8-16); ASPARTATE AMINO TRANSFERASE 12 U/L (10-37); BILIRUBIN,TOTAL 0.4 MG/DL (0.1-1.0); BLOOD UREA NITROGEN 4 MG/DL (7-18); BUN/CREATININE RATIO 4.7 (5.4-32.0); CALCIUM 8.2 MG/DL (8.5-10.1); CHLORIDE 96 MMOL/L (99-107); CREATININE 0.86 MG/DL (0.60-1.10); GLUCOSE 146 MG/DL (70-104); LIPASE 298 U/L (73-393); PHOSPHORUS 2.3 MG/DL (2.3-4.5); POTASSIUM 3.9 MMOL/L (3.5-5.1); SODIUM 130 MMOL/L (135-145); TOTAL CARBON DIOXIDE 24.1 MMOL/L (24-32); eGFR > 90 ML/MIN
[2020-08-25] MEDS: thiamine inj. 100 MG, MVI, adult No.4 with vit. K 10 ML in dextrose 5% water 500ml 500 ML IV SCH ×3 (09:58)
[2020-08-25] MEDS: folic acid 1mg/0.2ml inj IV SCH (09:58)
[2020-08-25 11:38] VITALS: BP 130/72
--- NOTE | 2020-08-25 12:59 | NUR ---
PAGER ID: [phone] MESSAGE: Micah Salinas is leaving AMA now. room 3012B. States he already discussed this with you. Sirisha [phone]
[2020-08-25 13:13] LABS: HIV ANTIBODY 1&2 RAPID NON-REACTIVE (Neg)
--- NOTE | 2020-08-25 13:22 | NUR ---
Pt left AMA. He was given extensive education on the risk of leaving AMA up to the risk of . Pt.'s verbal response= "I know." All IVs DC"D, pressure bandages applied. F/c removed. Tele removed and returned. AMA paperwork signed. Pt. left with his belongings.
[2020-08-25] MEDS ORDERED: VANCOMYCIN LEVEL IV ONE (19:30)
[2020-08-26] MEDS ORDERED: LORazepam 1 MG tablet PO PRN (19:00)
[2020-08-26] MEDS ORDERED: LORazepam 2 mg/ml vial IV PRN (19:00)
== END 2020-08-25 13:40 | disposition left against medical advice (07) | DRG 720 ==
LOC: EEVIPCON 08:00 → ER 08:00 → ED HOLD 12:01 → EDBEDREQ 15:46 → PCU 3S 16:42
PROVIDERS: ADMIT Family Medicine; ATTEND Family Medicine
PROC: 0W3P8ZZ Control Bleeding in Gastrointestinal Tract, Via Natural or Artificial Opening Endoscopic (ICD-10-PCS; principal; 2020-08-22)
PROC: BW211ZZ Computerized Tomography (CT Scan) of Abdomen and Pelvis using Low Osmolar Contrast (ICD-10-PCS; 2020-08-22)
PROC: 0D9670Z Drainage of Stomach with Drainage Device, Via Natural or Artificial Opening (ICD-10-PCS; 2020-08-22)
PROC: BW251ZZ Computerized Tomography (CT Scan) of Chest, Abdomen and Pelvis using Low Osmolar Contrast (ICD-10-PCS; 2020-08-23)
DX: A41.89 Other specified sepsis (principal); B19.20 Unspecified viral hepatitis C without hepatic coma; D64.9 Anemia, unspecified; E87.1 Hypo-osmolality and hyponatremia; E87.6 Hypokalemia; F10.239 Alcohol dependence with withdrawal, unspecified; F11.20 Opioid dependence, uncomplicated; F12.90 Cannabis use, unspecified, uncomplicated; K20.91 Esophagitis, unspecified with bleeding; Z53.29 Procedure and treatment not carried out because of patient's decision for other reasons; F32.9 Major depressive disorder, single episode, unspecified; F41.9 Anxiety disorder, unspecified; Z20.828 Contact with and (suspected) exposure to other viral communicable diseases; M54.5 Low back pain; K29.20 Alcoholic gastritis without bleeding; K56.609 Unspecified intestinal obstruction, unspecified as to partial versus complete obstruction; Z78.1 Physical restraint status; Z87.440 Personal history of urinary (tract) infections; Z88.0 Allergy status to penicillin; Z88.5 Allergy status to narcotic agent; Z71.51 Drug abuse counseling and surveillance of drug abuser
CPT/HCPCS: 36415; 43235; 70450; 71045; 74018; 74176; 74177; 76937; 80053; 80061; 80202; 80305; 80320; 81001; 82140; 82150; 82272; 82948; 83036; 83605; 83690; 83735; 84100; 84145; 85007; 85025; 85027; 85610; 85730; 86703; 86885; 86900; 86901; 87040; 87077; 87081; 87186; 87635; 93005; 93306; 93308; 99152; 99291; C9113; C9803; G0378; J0696; J1956; J2060; J2250; J2310; J2354; J2405; J2560; J2765; J3010; J3370; J3411; J3480; J3490; J7030; J7050; J7060; Q9967

== ENCOUNTER 2023-09-12 10:57 | Emergency (ER) | payer MEDICAID ==
[~2023-09-12] VITALS: Ht 175.3 cm; Wt 90.7 kg
[2023-09-12 13:46] LABS: ALANINE AMINOTRANSFERASE 52 U/L (12-78); ALBUMIN 3.9 G/DL (3.4-5.0); ALKALINE PHOSPHATASE 107 IU/L (46-116); ANION GAP 7 (8-16); BILIRUBIN,TOTAL 0.4 MG/DL (0.1-1.0); BLOOD UREA NITROGEN 14 MG/DL (7-18); BUN/CREATININE RATIO 21.9 (10.0-20.0); CHLORIDE 104 MMOL/L (99-107); CREATININE 0.64 MG/DL (0.60-1.10); GLUCOSE 88 MG/DL (70-104); SODIUM 137 MMOL/L (135-145); TOTAL CARBON DIOXIDE 25.8 MMOL/L (24-32); TOTAL PROTEIN 7.8 G/DL (6.4-8.2); eCRCL 163 ML/MIN; eGFR > 90 ML/MIN
[2023-09-12 13:55] LABS: POTASSIUM 4.2 MMOL/L (3.5-5.1)
[2023-09-12 13:56] LABS: ASPARTATE AMINO TRANSFERASE 41 U/L (10-37); PRO BRAIN NATRIURETIC PEPTIDE < 30 PG/ML (0-125)
[2023-09-12 14:20] LABS: BASOPHILS # (AUTO) 0.1 X10'3 (0-0.2); BASOPHILS % (AUTO) 0.6 % (0-1); EOSINOPHILS # (AUTO) 0.1 X10'3 (0-0.9); HEMATOCRIT 44.5 % (42.0-52.0); LYMPHOCYTES # (AUTO) 1.8 X10'3 (1.1-4.8); LYMPHOCYTES % (AUTO) 20.4 % (21-51); MEAN CORPUSCULAR HEMOGLOBIN 28.8 PG (27.0-31.0); MEAN CORPUSCULAR HGB CONC 33.7 g/dL (33.0-36.5); MEAN CORPUSCULAR VOLUME 85.4 FL (78-98); MEAN PLATELET VOLUME 8.7 FL (7.4-10.4); MONOCYTES # (AUTO) 0.7 X10'3 (0-0.9); NEUTROPHILS # (AUTO) 6.3 X10'3 (1.8-7.7); PLATELET COUNT 244 X10'3 (140-440); RED BLOOD COUNT 5.21 X10'6 (4.70-6.10); RED CELL DISTRIBUTION WIDTH 14.1 % (11.5-14.5)
[2023-09-12] MEDS ORDERED: IBUP-1984 PO (17:15)
[2023-09-12 17:33] VITALS: BP 159/101; PULSE 91; RESP 18; TEMP 97.9; O2SAT 99
== END 2023-09-12 17:36 | disposition home or self-care (01) ==
LOC: ER 10:58
DX: R07.89 Other chest pain (principal); F41.9 Anxiety disorder, unspecified; F31.9 Bipolar disorder, unspecified; F12.90 Cannabis use, unspecified, uncomplicated; F15.90 Other stimulant use, unspecified, uncomplicated; F11.90 Opioid use, unspecified, uncomplicated; Z86.14 Personal history of Methicillin resistant Staphylococcus aureus infection; Z90.89 Acquired absence of other organs; Z72.89 Other problems related to lifestyle; Z88.0 Allergy status to penicillin; Z88.1 Allergy status to other antibiotic agents; Z88.5 Allergy status to narcotic agent; Z79.899 Other long term (current) drug therapy
CPT/HCPCS: 36415; 71045; 80053; 83880; 84484; 85025; 93005; 99285

== ENCOUNTER 2023-11-07 13:04 | Emergency (ER) | payer MEDICAID ==
[~2023-11-07] VITALS: Ht 175.3 cm; Wt 94.8 kg
[2023-11-07] MEDS ORDERED: dexamethasone sod phosphate 10mg/ml inj IM STA (13:58)
[2023-11-07] MEDS ORDERED: ketorolac trometh inj. 60 MG/2 ML VIAL IM ONE (14:00)
[2023-11-07] MEDS ORDERED: TAM75C PO (16:22)
[2023-11-07 16:56] VITALS: BP 120/88; PULSE 104; RESP 18; TEMP 98.3; O2SAT 99
== END 2023-11-07 17:10 | disposition home or self-care (01) ==
LOC: ER 13:05
DX: J11.1 Influenza due to unidentified influenza virus with other respiratory manifestations (principal); R07.89 Other chest pain; F41.9 Anxiety disorder, unspecified; F32.A Depression, unspecified; F12.90 Cannabis use, unspecified, uncomplicated; F15.90 Other stimulant use, unspecified, uncomplicated; F19.90 Other psychoactive substance use, unspecified, uncomplicated; Z20.822 Contact with and (suspected) exposure to COVID-19; Z88.0 Allergy status to penicillin; Z88.8 Allergy status to other drugs, medicaments and biological substances
CPT/HCPCS: 36415; 71045; 87502; 87503; 87811; 96372; 99284; J1100; J1885

== ENCOUNTER 2024-04-08 14:46 | Emergency (ER) | payer MEDICAID ==
[~2024-04-08] VITALS: Ht 175.3 cm; Wt 96.5 kg
[2024-04-08 15:02] LABS: BASOPHILS % (AUTO) 0.4 % (0-1); EOSINOPHILS # (AUTO) 0.1 X10'3 (0-0.9); EOSINOPHILS % (AUTO) 0.6 % (0-6); HEMATOCRIT 45.7 % (42.0-52.0); HEMOGLOBIN 15.6 g/dl (14.0-17.9); LYMPHOCYTES # (AUTO) 2.2 X10'3 (1.1-4.8); MEAN CORPUSCULAR HEMOGLOBIN 28.4 PG (27.0-31.0); MEAN CORPUSCULAR HGB CONC 34.2 g/dL (33.0-36.5); MEAN CORPUSCULAR VOLUME 83.2 FL (78-98); MEAN PLATELET VOLUME 8.8 FL (7.4-10.4); MONOCYTES # (AUTO) 0.7 X10'3 (0-0.9); MONOCYTES % (AUTO) 6.3 % (2-12); NEUTROPHILS # (AUTO) 7.5 X10'3 (1.8-7.7); NEUTROPHILS % (AUTO) 71.7 % (42-75); PLATELET COUNT 227 X10'3 (140-440); RED CELL DISTRIBUTION WIDTH 13.6 % (11.5-14.5); WHITE BLOOD COUNT 10.5 X10'3 (4.5-11.0)
[2024-04-08 15:19] LABS: ALANINE AMINOTRANSFERASE 58 U/L (12-78); ALBUMIN 4.3 G/DL (3.4-5.0); ALKALINE PHOSPHATASE 114 IU/L (46-116); ANION GAP 11 (8-16); ASPARTATE AMINO TRANSFERASE 30 U/L (10-37); BILIRUBIN,TOTAL 0.4 MG/DL (0.1-1.0); BLOOD UREA NITROGEN 10 MG/DL (7-18); CALCIUM 9.3 MG/DL (8.5-10.1); CHLORIDE 104 MMOL/L (99-107); CREATININE 0.83 MG/DL (0.60-1.10); GLUCOSE 99 MG/DL (70-104); POTASSIUM 3.9 MMOL/L (3.5-5.1); SODIUM 141 MMOL/L (135-145); TOTAL CARBON DIOXIDE 25.6 MMOL/L (24-32); TOTAL PROTEIN 8.5 G/DL (6.4-8.2); eGFR > 90 ML/MIN
[2024-04-08 15:21] VITALS: TEMP 98.1
[2024-04-08 15:26] LABS: PRO BRAIN NATRIURETIC PEPTIDE < 30 PG/ML (0-125)
[2024-04-08] MEDS: proCHLORperazine 10 MG/2 ml inj IM ONE (17:04)
[2024-04-08] MEDS: ketorolac tromethamine 15mg/ml inj. IM ONE (17:09)
[2024-04-08 17:17] LABS: D-DIMER < 0.19 MG/L FEU (0-0.50)
[2024-04-08 18:12] LABS: URINE AMPHETAMINE SCREEN NEGATIVE (Neg); URINE BARBITUATE SCREEN NEGATIVE (Neg); URINE BENZODIAZEPINES SCREEN NEGATIVE (Neg); URINE CANNABINOID SCREEN NEGATIVE (Neg); URINE COCAINE SCREEN NEGATIVE (Neg); URINE METHADONE SCREEN NEGATIVE (Neg); URINE OPIATE SCREEN NEGATIVE (Neg); URINE PHENCYCLIDINE SCREEN NEGATIVE (Neg)
[2024-04-08 18:20] VITALS: BP 118/75; PULSE 81; RESP 15; O2SAT 99
== END 2024-04-08 18:26 | disposition home or self-care (01) ==
LOC: ER 14:46
DX: R07.89 Other chest pain (principal); R51.9 Headache, unspecified; F17.210 Nicotine dependence, cigarettes, uncomplicated; F31.9 Bipolar disorder, unspecified; F15.90 Other stimulant use, unspecified, uncomplicated; F12.90 Cannabis use, unspecified, uncomplicated; Z88.0 Allergy status to penicillin; Z88.1 Allergy status to other antibiotic agents; Z88.5 Allergy status to narcotic agent; Z79.899 Other long term (current) drug therapy
CPT/HCPCS: 36415; 70450; 71045; 80053; 80305; 83880; 84484; 85025; 85379; 93005; 96372; 99285; J0780; J1885

== ENCOUNTER 2024-05-22 18:40 | Emergency (ER) | payer MEDICAID ==
[~2024-05-22] VITALS: Ht 175.3 cm; Wt 97.0 kg
[2024-05-22] MEDS ORDERED: silver sulfadiazine cream 50gm TP ONE (21:04)
[2024-05-22 21:14] VITALS: BP 130/89; PULSE 100; RESP 15; TEMP 98.5; O2SAT 94
== END 2024-05-22 21:27 | disposition home or self-care (01) ==
LOC: ER 18:40
DX: T23.202A Burn of second degree of left hand, unspecified site, initial encounter (principal); F12.90 Cannabis use, unspecified, uncomplicated; F15.90 Other stimulant use, unspecified, uncomplicated; F11.90 Opioid use, unspecified, uncomplicated; F41.9 Anxiety disorder, unspecified; F32.A Depression, unspecified; Z88.0 Allergy status to penicillin; Z88.1 Allergy status to other antibiotic agents; Z88.8 Allergy status to other drugs, medicaments and biological substances; Z79.899 Other long term (current) drug therapy; Z98.890 Other specified postprocedural states; Z72.89 Other problems related to lifestyle; X08.8XXA Exposure to other specified smoke, fire and flames, initial encounter; Y93.89 Activity, other specified; Y92.89 Other specified places as the place of occurrence of the external cause; Y99.8 Other external cause status
CPT/HCPCS: 16020; 93005; 99282; 99283; A6258; A6446; A6449

== ENCOUNTER 2024-05-28 14:10 | Emergency (ER) | payer MEDICAID ==
[~2024-05-28] VITALS: Ht 175.3 cm; Wt 100.0 kg
[2024-05-28 14:29] LABS: BASOPHILS % (AUTO) 0.2 % (0-1); EOSINOPHILS # (AUTO) 0.1 X10'3 (0-0.9); EOSINOPHILS % (AUTO) 1.3 % (0-6); HEMATOCRIT 46.2 % (42.0-52.0); HEMOGLOBIN 15.7 g/dl (14.0-17.9); LYMPHOCYTES # (AUTO) 2.2 X10'3 (1.1-4.8); LYMPHOCYTES % (AUTO) 29.2 % (21-51); MEAN CORPUSCULAR HEMOGLOBIN 28.5 PG (27.0-31.0); MEAN CORPUSCULAR VOLUME 83.8 FL (78-98); MEAN PLATELET VOLUME 8.7 FL (7.4-10.4); MONOCYTES # (AUTO) 0.5 X10'3 (0-0.9); MONOCYTES % (AUTO) 6.3 % (2-12); NEUTROPHILS # (AUTO) 4.8 X10'3 (1.8-7.7); PLATELET COUNT 215 X10'3 (140-440); RED BLOOD COUNT 5.51 X10'6 (4.70-6.10); RED CELL DISTRIBUTION WIDTH 13.6 % (11.5-14.5); WHITE BLOOD COUNT 7.7 X10'3 (4.5-11.0)
[2024-05-28 14:45] LABS: ALANINE AMINOTRANSFERASE 71 U/L (12-78); ALBUMIN 4.1 G/DL (3.4-5.0); ALKALINE PHOSPHATASE 108 IU/L (46-116); ANION GAP 12 (8-16); ASPARTATE AMINO TRANSFERASE 41 U/L (10-37); BILIRUBIN,TOTAL 0.5 MG/DL (0.1-1.0); BLOOD UREA NITROGEN 17 MG/DL (7-18); BUN/CREATININE RATIO 17.2 (10.0-20.0); CALCIUM 9.1 MG/DL (8.5-10.1); CHLORIDE 108 MMOL/L (99-107); CREATININE 0.99 MG/DL (0.60-1.10); GLUCOSE 116 MG/DL (70-104); POTASSIUM 3.9 MMOL/L (3.5-5.1); SODIUM 143 MMOL/L (135-145); TOTAL CARBON DIOXIDE 23.4 MMOL/L (24-32); TOTAL PROTEIN 8.1 G/DL (6.4-8.2); eCRCL 105 ML/MIN; eGFR 87 ML/MIN
[2024-05-28 15:04] LABS: PRO BRAIN NATRIURETIC PEPTIDE < 30 PG/ML (0-125)
[2024-05-28] MEDS ORDERED: ALBU8HFA INH (15:26)
[2024-05-28 15:55] VITALS: BP 130/87; PULSE 94; TEMP 98.2; O2SAT 96
[2024-05-28 15:58] VITALS: RESP 16
== END 2024-05-28 16:03 | disposition home or self-care (01) ==
LOC: ER 14:11
DX: R06.02 Shortness of breath (principal); R53.83 Other fatigue; F41.9 Anxiety disorder, unspecified; F31.9 Bipolar disorder, unspecified; Z86.14 Personal history of Methicillin resistant Staphylococcus aureus infection; F12.90 Cannabis use, unspecified, uncomplicated; F15.90 Other stimulant use, unspecified, uncomplicated; F11.90 Opioid use, unspecified, uncomplicated; Z72.89 Other problems related to lifestyle; Z88.0 Allergy status to penicillin; Z88.1 Allergy status to other antibiotic agents; Z88.8 Allergy status to other drugs, medicaments and biological substances
CPT/HCPCS: 36415; 71045; 80053; 83880; 84484; 85025; 93005; 99285

== ENCOUNTER 2024-07-06 13:24 | Emergency (ER) | payer MEDICAID ==
[~2024-07-06] VITALS: Ht 175.3 cm; Wt 96.7 kg
[2024-07-06 14:59] VITALS: BP 179/124; PULSE 107; RESP 17; TEMP 98.7; O2SAT 96
== END 2024-07-06 15:00 | disposition home or self-care (01) ==
LOC: ER 13:24
DX: R07.89 Other chest pain (principal); F41.9 Anxiety disorder, unspecified; F12.90 Cannabis use, unspecified, uncomplicated; F32.A Depression, unspecified; F15.90 Other stimulant use, unspecified, uncomplicated; Z88.0 Allergy status to penicillin; Z88.1 Allergy status to other antibiotic agents; Z88.5 Allergy status to narcotic agent; Z79.899 Other long term (current) drug therapy
CPT/HCPCS: 71046; 99283